=== PATIENT | male | born 1960 | race Caucasian/White ===

== ENCOUNTER 2017-05-04 20:14 | Emergency (ER) | payer OTHER ==
[~2017-05-04] VITALS: Ht 177.8 cm; Wt 77.1 kg
[2017-05-04 20:32] VITALS: BP 123/91
--- NOTE | 2017-05-04 20:32 | NUR ---
SENT TO [facility], AMBULATORY, WITH STABLE CONDITION.
[2017-05-04 20:39] VITALS: BP 123/91
--- NOTE | 2017-05-04 20:40 | NUR ---
SENT TO [facility] WITH THE [facility].
--- NOTE | 2017-05-04 22:17 | NUR ---
Patient ambulated to bed 6. RN evaluating patient at bedside.
--- NOTE | 2017-05-04 22:20 | NUR ---
56/M CAME IN WITH C/O 02/22 RT ANKLE PAIN. DENIES TRAUMA/INJURY. REDNESS AND NONPITTING EDEMA TO RT ANKLE NOTED, +TENDERNESS, SKIN INTACT. NO HISTORY OF SIMILAR SYMPTOMS REPORTED. DENIES FEVER/CHILL. DENIES OTHER PMH/RX/OTC
--- NOTE | 2017-05-04 22:35 | NUR ---
Patient discharged with v/s stable. Written and verbal after care instructions given and explained. Patient alert, oriented and verbalized understanding of instructions. Ambulatory with to car. All questions addressed prior to discharge. ID band removed. Patient advised to follow up with PMD. Rx of IBUPROFEN AND BACTRIM DS given. Patient educated on indication of medication including possible reaction and side effects. Opportunity to ask questions provided and answered.
== END 2017-05-04 22:35 | disposition home or self-care (01) ==
LOC: MED 20:14
DX: L03.115 Cellulitis of right lower limb (principal)
CPT/HCPCS: 73610; 99284

== ENCOUNTER 2019-05-10 13:44 | Emergency (ER) | payer OTHER ==
[~2019-05-10] VITALS: Ht 177.8 cm; Wt 79.4 kg
[2019-05-10 13:49] VITALS: BP 124/83
--- NOTE | 2019-05-10 13:59 | NUR ---
PT AMBULATED TO ER BED 08
--- NOTE | 2019-05-10 13:59 | NUR ---
PT TAKEN TO RADIOLOGY AT THIS TIME
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
[2019-05-10] MEDS ORDERED: NACL 0.9% 500 ML IV SCH (15:34)
[2019-05-10] MEDS ORDERED: ONDANSETRON 4 MG/2 ML VIAL IVP ONE (15:35)
[2019-05-10] MEDS ORDERED: VANCOMYCIN 1,000 MG in DEXTROSE 5% 250 ML IV ONE (15:35)
[2019-05-10] MEDS ORDERED: PIPERACILLIN/TAZOBACTAM 3.375 GM in DEXT 5% MINI-BAG PLUS 50 ML IV ONE (15:35)
[2019-05-10] MEDS ORDERED: MORPHINE SULFATE 4 MG/ML SYR IVP ONE (15:35)
--- NOTE | 2019-05-10 15:35 | NUR ---
PT HAS A WHITE MARISSA TRUCK IN THE PARKING LOT
--- NOTE | 2019-05-10 15:45 | NUR ---
XRAY AT BEDSIDE
--- NOTE | 2019-05-10 15:47 | NUR ---
PT PROVIDING URINE SAMPLE AT BEDSIDE. DRAMA DIRECTOR WAITING OUTSIDE.
[2019-05-10] MEDS ORDERED: NACL 0.9% 2,000 ML IV SCH (15:48)
[2019-05-10] MEDS ORDERED: PIPERACILLIN/TAZOBACTAM 3.375 GM VIAL IV ONE (16:05)
[2019-05-10 16:33] LABS: BASOPHILS % (AUTO) 0.1 % (0.0-2.0); EOSINOPHILS % (AUTO) 0.1 % (0.0-4.0); HEMATOCRIT 47.1 % (36-52); HEMOGLOBIN 15.8 g/dL (12.0-18.0); LYMPHOCYTES # (AUTO) 0.8 K/uL (2.0-11.5); LYMPHOCYTES % (AUTO) 6.9 % (20.5-51.1); MEAN CORPUSCULAR HEMOGLOBIN 30 pg (27-31); MEAN CORPUSCULAR HGB CONC 34 g/dL (33-37); MEAN CORPUSCULAR VOLUME 89.3 fL (80-94); MONOCYTES # (AUTO) 0.5 K/uL (0.8-1.0); MONOCYTES % (AUTO) 4.5 % (1.7-9.3); NEUTROPHILS # (AUTO) 10.4 K/uL (1.8-7.7); NEUTROPHILS % (AUTO) 88.4 % (42.2-75.2); PLATELET COUNT (AUTO) 247 K/uL (140-450); RED BLOOD CELL COUNT(AUTO) 5.27 MIL/uL (4.20-6.10); RED CELL DISTRIBUTION WIDTH 14.2 % (11.6-13.7); WHITE BLOOD COUNT (AUTO) 11.8 K/uL (4.8-10.8)
[2019-05-10 16:49] LABS: ALBUMIN 3.5 g/dL (3.4-5.0); ANION GAP 13.4 (8-16); CARBON DIOXIDE 26.6 mmol/L (21-32); CREATININE 0.8 mg/dL (0.7-1.3); TOTAL BILIRUBIN 0.6 mg/dL (0.0-1.0)
[2019-05-10 16:52] LABS: APPEARANCE,URINE CLEAR (CLEAR); BILIRUBIN,URINE NEGATIVE (NEGATIVE); BLOOD, URINE NEGATIVE (NEGATIVE); COLOR,URINE YELLOW (YELLOW); LEUKOCYTE ESTERASE ,URINE NEGATIVE (NEGATIVE); NITRITE, URINE NEGATIVE (NEGATIVE); PH,URINE 7.5 (5.0-9.0); UGLUCOSE NEGATIVE (NEGATIVE)
[2019-05-10] MEDS ORDERED: VANCOMYCIN 1,000 MG VIAL ONE (16:57)
--- NOTE | 2019-05-10 17:10 | NUR ---
[facility] at bedside for transfer to [facility] ER.
--- NOTE | 2019-05-10 17:17 | NUR ---
NOTIFIED DR. AMAYA THAT [facility] STARTED A FEW MIN AGO BUT [facility] TRANSPORT IS HERE. PER , OKAY TO STOP INFUSING [facility] AND TRANSFER PT NOW.
--- NOTE | 2019-05-10 17:18 | NUR ---
report to Rah ([facility]) at bedside
--- NOTE | 2019-05-10 17:22 | NUR ---
Patient to be transferred to [facility]. Receiving facility has accepting physician and available space. ER physician has signed transfer form. Patient or responsible alliance party has agreed to transfer and signed form. Patient belongings inventoried and will be sent with patient. Copy of nursing notes, lab reports, EKG, Physicians Orders and X-rays to be sent with patient. Report called to SOCORRO BRYANT at receiving facility. Addendum: 05/10/19 at 1800 by SHANEKA Is being transferred due to ABSCESS AND CELLULITIS FOR RIGHT HAND.
--- NOTE | 2019-05-10 17:22 | NUR ---
REPORT TO SOCORRO BRYANT AT [facility].
[2019-05-10 17:45] VITALS: BP 115/76
== END 2019-05-10 17:22 | disposition short-term general hospital (02) ==
LOC: MED 13:44
DX: S69.91XA Unspecified injury of right wrist, hand and finger(s), initial encounter (principal); L02.511 Cutaneous abscess of right hand; L03.113 Cellulitis of right upper limb; W22.8XXA Striking against or struck by other objects, initial encounter; Y93.B9 Activity, other involving muscle strengthening exercises; Y99.8 Other external cause status
CPT/HCPCS: 36415; 73090; 73120; 80053; 81003; 83605; 85025; 87040; 87086; 96365; 96375; 99285; J2270; J2405; J2543; J3370; J7060; Q0092; 96374

== ENCOUNTER 2019-05-18 16:00 | Emergency (ER) | payer OTHER ==
[~2019-05-18] VITALS: Ht 175.3 cm; Wt 79.8 kg
[2019-05-18 16:08] VITALS: BP 133/84
--- NOTE | 2019-05-18 16:14 | NUR ---
Triage completed, ambulated out to ER waiting room.
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
--- NOTE | 2019-05-18 16:20 | NUR ---
Pt placed in chair B.
[2019-05-18] MEDS ORDERED: BACITRACIN OINT 500 UNITS/GM PKT TP ONE (16:30)
--- NOTE | 2019-05-18 16:39 | NUR ---
L HAND CLEANSED, BACITRACIN APPLIED, AND COVERED WITH NONADHERENT AND KERLIX, +CMS DISTALLY.
[2019-05-18 16:40] VITALS: BP 133/84
== END 2019-05-18 16:40 | disposition home or self-care (01) ==
LOC: MED 16:00
DX: S69.91XD Unspecified injury of right wrist, hand and finger(s), subsequent encounter (principal); F17.210 Nicotine dependence, cigarettes, uncomplicated; X58.XXXD Exposure to other specified factors, subsequent encounter
CPT/HCPCS: 99283

== ENCOUNTER 2019-07-19 10:10 | Emergency (ER) | payer OTHER ==
[~2019-07-19] VITALS: Ht 177.8 cm; Wt 82.3 kg
[2019-07-19 10:12] VITALS: BP 124/69
--- NOTE | 2019-07-19 10:30 | NUR ---
PT AMBULATED TO BED 9, STEADY GAIT.
--- NOTE | 2019-07-19 10:37 | NUR ---
58 Y/M PRESENTS TO ED FOR CELLULITIS OF RLQ OF ABDOMEN X 3 DAY. PT REPORTS 8/10 SHARP PAIN. EDEMA AND ERYTHEMA NOTED TO ABDOMEN. PT REPORTS DRAINAGE AFTER APPLYING NEOSPORIN. PT UNABLE TO RECALL COLOR OF DRAINIAGE. VIRGIE DENIES PM Addendum: 07/19/19 at 1038 by [facility] DENIES N/V/D, CHILLS OR FEVERS.
[2019-07-19] MEDS ORDERED: KETOROLAC 60 MG/2 ML VIAL IM ONE (11:35)
--- NOTE | 2019-07-19 12:20 | NUR ---
ZAHIDA BRAXTON EVALUATING PT AT BEDSIDE.
[2019-07-19 12:24] VITALS: BP 169/82
--- NOTE | 2019-07-19 12:24 | NUR ---
Patient discharged with v/s stable. Written and verbal after care instructions given and explained. Patient alert, oriented and verbalized understanding of instructions. Ambulatory with steady gait. All questions addressed prior to discharge. ID band removed. Patient advised to follow up with PMD. Rx of NAPROXEN, KEFLEX AND BACTIM given. Patient educated on indication of medication including possible reaction and side effects. Opportunity to ask questions provided and answered.
--- NOTE | 2019-07-19 12:25 | NUR ---
NADR, PAIN 09/22
== END 2019-07-19 12:24 | disposition home or self-care (01) ==
LOC: MED 10:10
DX: L03.311 Cellulitis of abdominal wall (principal); F17.210 Nicotine dependence, cigarettes, uncomplicated
CPT/HCPCS: 96372; 99283; J1885

== ENCOUNTER 2020-02-19 00:15 | Emergency (ER) | payer OTHER ==
[~2020-02-19] VITALS: Ht 177.8 cm; Wt 86.2 kg
[2020-02-19 00:26] VITALS: BP 150/91
--- NOTE | 2020-02-19 00:36 | NUR ---
AMBULATED TO ER BED 7
[2020-02-19] MEDS: KETOROLAC 30 MG/ML VIAL IM ONE (01:54)
--- NOTE | 2020-02-19 02:01 | NUR ---
PT TAKEN TO CT VIA W/C Addendum: 02/19/20 at 0215 by JOANNE pt taken to ct via rishi
--- NOTE | 2020-02-19 02:15 | NUR ---
pt returned from ct via [facility]
--- NOTE | 2020-02-19 02:44 | NUR ---
XRAY AT BEDSIDE.
--- NOTE | 2020-02-19 03:17 | NUR ---
pts right wrist was placed on a volar splint. pts [facility] wnl.
[2020-02-19 03:30] VITALS: BP 150/91
== END 2020-02-19 03:30 | disposition home or self-care (01) ==
LOC: MED 00:15
DX: S52.611A Displaced fracture of right ulna styloid process, initial encounter for closed fracture (principal); S16.1XXA Strain of muscle, fascia and tendon at neck level, initial encounter; S00.33XA Contusion of nose, initial encounter; M25.511 Pain in right shoulder; X58.XXXA Exposure to other specified factors, initial encounter; Y93.89 Activity, other specified; Y92.89 Other specified places as the place of occurrence of the external cause; Y99.8 Other external cause status
CPT/HCPCS: 29125; 70160; 70450; 72125; 73030; 73110; 96372; 99285; J1885; Q0092

== ENCOUNTER 2020-03-20 14:24 | Emergency (ER) | payer OTHER ==
[~2020-03-20] VITALS: Ht 177.8 cm; Wt 86.2 kg
[2020-03-20 14:34] VITALS: BP 134/84
--- NOTE | 2020-03-20 14:42 | NUR ---
WAIT AT LOBBY. HANDED ON URINE CUP.
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
--- NOTE | 2020-03-20 16:08 | NUR ---
DR. HUANG IS EVALUATING PT AT BEDSIDE.
[2020-03-20] MEDS ORDERED: KETOROLAC 30 MG/ML VIAL IM ONE (16:10)
--- NOTE | 2020-03-20 17:19 | NUR ---
PT REFUSED TO BE DISCHARGED WITH TYLENOL AND WANTED TO TALK TO DR. HUANG. DR. HUANG MADE AWARE.
[2020-03-20 17:49] VITALS: BP 118/81
== END 2020-03-20 17:49 | disposition home or self-care (01) ==
LOC: MED 14:24
DX: S52.614A Nondisplaced fracture of right ulna styloid process, initial encounter for closed fracture (principal); M25.511 Pain in right shoulder; M25.521 Pain in right elbow; X58.XXXA Exposure to other specified factors, initial encounter; Y93.89 Activity, other specified; Y92.89 Other specified places as the place of occurrence of the external cause; Y99.8 Other external cause status
CPT/HCPCS: 73030; 73080; 73110; 96372; 99284; J1885; Q0092

== ENCOUNTER 2021-01-01 10:05 | Emergency (ER) | payer OTHER ==
[~2021-01-01] VITALS: Ht 170.2 cm; Wt 79.4 kg
--- NOTE | 2021-01-01 10:05 | NUR ---
PT BIBA AND PLACED IN BED 9.
[2021-01-01 10:11] VITALS: BP 174/81
--- NOTE | 2021-01-01 10:22 | NUR ---
YOLANDA FROM [facility]. PATIENT PRESENTS TO ED WITH LUQ THAT BEGAN AT 3 AM TODAY . PT DENIES ANY ALCOHOL OR DRUG ABUSE. . DENIES N/V/D; SKIN IS PINK/WARM/DRY; AAOX4 WITH EVEN AND STEADY GAIT; LUNGS CLEAR BL; HR EVEN AND REGULAR; PT DENIES ANY FEVER, CP, SOB, OR COUGH AT THIS TIME; PATIENT STATES PAIN OF 10/10 AT THIS TIME; VSS; PATIENT POSITIONED FOR COMFORT; HOB ELEVATED; BEDRAILS UP X2; BED DOWN. ER MD MADE AWARE OF PT STATUS.
[2021-01-01] MEDS ORDERED: KETOROLAC 60 MG/2 ML VIAL IM ONE (12:35)
--- NOTE | 2021-01-01 12:54 | NUR ---
Taken to Xray via wheelchair
--- NOTE | 2021-01-01 13:05 | NUR ---
PT BROUGHT BACK FROM XRAY
[2021-01-01] MEDS ORDERED: NACL 0.9% 1,000 ML IV SCH (13:15)
[2021-01-01 14:03] LABS: BASOPHILS % (AUTO) 0.5 % (0.0-2.0); EOSINOPHILS % (AUTO) 0.3 % (0.0-4.0); HEMATOCRIT 46.6 % (36-52); HEMOGLOBIN 15.6 g/dL (12.0-18.0); LYMPHOCYTES % (AUTO) 11.3 % (20.5-51.1); MEAN CORPUSCULAR HEMOGLOBIN 30 pg (27-31); MEAN CORPUSCULAR HGB CONC 34 g/dL (33-37); MEAN CORPUSCULAR VOLUME 88.9 fL (80-94); MONOCYTES # (AUTO) 0.5 K/uL (0.8-1.0); MONOCYTES % (AUTO) 5.8 % (1.7-9.3); NEUTROPHILS # (AUTO) 7.4 K/uL (1.8-7.7); NEUTROPHILS % (AUTO) 82.1 % (42.2-75.2); PLATELET COUNT (AUTO) 249 K/uL (140-450); RED BLOOD CELL COUNT(AUTO) 5.24 MIL/uL (4.20-6.10); RED CELL DISTRIBUTION WIDTH 14.1 % (11.6-13.7)
[2021-01-01 14:08] LABS: APPEARANCE,URINE HAZY (CLEAR); BILIRUBIN,URINE NEGATIVE (NEGATIVE); BLOOD, URINE 3+ (NEGATIVE); COLOR,URINE YELLOW (YELLOW); LEUKOCYTE ESTERASE ,URINE NEGATIVE (NEGATIVE); NITRITE, URINE NEGATIVE (NEGATIVE); UGLUCOSE NEGATIVE (NEGATIVE)
[2021-01-01 14:16] LABS: RBC,URINE 20-50 /HPF (0-5); URIC ACID CRYSTALS,URINE 0-10 /HPF (None Seen); WBC,URINE 0-5 /HPF (0-5)
[2021-01-01] MEDS ORDERED: ACET-8386 PO (14:18)
[2021-01-01] MEDS ORDERED: TAMS0.4C96 PO (14:18)
[2021-01-01 14:22] LABS: ALBUMIN 3.5 g/dL (3.4-5.0); ANION GAP 7.8 (8-16); CARBON DIOXIDE 30.2 mmol/L (21-32); TOTAL BILIRUBIN 0.5 mg/dL (0.0-1.0)
[2021-01-01 14:45] VITALS: BP 174/81
--- NOTE | 2021-01-01 15:14 | NUR ---
Patient discharged with v/s stable. Written and verbal after care instructions given and explained. Patient alert, oriented and verbalized understanding of instructions. Ambulatory with steady gait. All questions addressed prior to discharge. ID band removed. Patient advised to follow up with PMD. Rx of NORCO, FLOMAX given. Patient educated on indication of medication including possible reaction and side effects. Opportunity to ask questions provided and answered.
== END 2021-01-01 15:14 | disposition home or self-care (01) ==
LOC: MED 10:05
DX: N20.0 Calculus of kidney (principal); R10.12 Left upper quadrant pain; Z79.899 Other long term (current) drug therapy
CPT/HCPCS: 36415; 71101; 74176; 80053; 81001; 83690; 85025; 87086; 93005; 96372; 99285; J1885

== ENCOUNTER 2021-01-02 22:43 | Emergency (ER) | payer OTHER ==
[~2021-01-02] VITALS: Ht 177.8 cm; Wt 93.6 kg
[~2021-01-02 22:43] MED LIST: ACET-8386 PO; TAMS0.4C96 PO
[2021-01-02 23:30] VITALS: BP 151/82
--- NOTE | 2021-01-02 23:33 | NUR ---
[facility] A/W BED AMBULATORY
--- NOTE | 2021-01-02 23:44 | NUR ---
PT AMBULATED TO ER CHAIR B
[2021-01-03] MEDS ORDERED: HYDROcodone/APAP 10/325 MG 1 TAB TAB PO STA (01:00)
[2021-01-03 01:56] LABS: APPEARANCE,URINE CLEAR (CLEAR); BILIRUBIN,URINE NEGATIVE (NEGATIVE); BLOOD, URINE 2+ (NEGATIVE); COLOR,URINE YELLOW (YELLOW); LEUKOCYTE ESTERASE ,URINE NEGATIVE (NEGATIVE); NITRITE, URINE NEGATIVE (NEGATIVE); UGLUCOSE NEGATIVE (NEGATIVE)
[2021-01-03] MEDS ORDERED: HYDR-5191 PO (02:15)
[2021-01-03] MEDS ORDERED: TAMS0.4C96 PO (02:15)
[2021-01-03 02:20] VITALS: BP 142/78
--- NOTE | 2021-01-03 02:20 | NUR ---
Patient discharged with v/s stable. Written and verbal after care instructions given and explained. Patient alert, oriented and verbalized understanding of instructions. Ambulatory with steady gait. All questions addressed prior to discharge. ID band removed. Patient advised to follow up with PMD. Rx of NORCO 10-325, TAMSULOSIN given. Patient educated on indication of medication including possible reaction and side effects. Opportunity to ask questions provided and answered.
== END 2021-01-03 02:20 | disposition home or self-care (01) ==
LOC: MED 22:43
DX: N20.0 Calculus of kidney (principal); Z79.899 Other long term (current) drug therapy
CPT/HCPCS: 81001; 87086; 99283

== ENCOUNTER 2021-04-11 01:43 | Emergency (ER) | payer OTHER ==
[~2021-04-11] VITALS: Ht 177.8 cm; Wt 90.0 kg
[~2021-04-11 01:43] MED LIST changes: -ACET-8386 PO; +HYDR-5191 PO
[2021-04-11 01:56] VITALS: BP 142/82
--- NOTE | 2021-04-11 01:56 | NUR ---
TO BED AMBULATORY
--- NOTE | 2021-04-11 02:42 | NUR ---
Note arturo in EDM - 04/11/21 at 0247 by KARY 60 YO MALE BIB SELF FOR RIGHT WRIST PAIN FOR 2 WEEKS. PT STATES HE BROKE HIS WRIST IN 2019 AND MAY HAVE BROKEN AGAIN.
--- NOTE | 2021-04-11 02:47 | NUR ---
60 YO MALE BIB SELF FOR RIGHT WRIST PAIN FOR 2 WEEKS. PT STATES HE BROKE HIS WRIST IN 2019 AND MAY HAVE BROKEN AGAIN. PT ALSO COMPLAINS OF ABCESS ON FINGER AND NOSE. HE THINKS HE MAY BE DIABETIC. PT HAS NOT TAKEN ANYTHING FOR THE PAIN. PATIENT HAS NKA.
[2021-04-11] MEDS ORDERED: KETOROLAC 30 MG/ML VIAL IM ONE (02:50)
[2021-04-11] MEDS ORDERED: NAPR-54 PO (02:52)
[2021-04-11] MEDS ORDERED: SULF-59 PO (02:52)
[2021-04-11] MEDS ORDERED: HYDROcodone/APAP 5/325 MG 1 TAB TAB PO ONE (02:55)
--- NOTE | 2021-04-11 03:14 | NUR ---
Dr. Cherry examining patient.
[2021-04-11] MEDS ORDERED: ACET-8386 PO (03:18)
[2021-04-11 04:17] VITALS: BP 140/80
--- NOTE | 2021-04-11 05:20 | NUR ---
Patient discharged with v/s stable. Written and verbal after care instructions given and explained. Patient alert, oriented and verbalized understanding of instructions. Ambulatory with steady gait. All questions addressed prior to discharge. ID band removed. Patient advised to follow up with PMD. Rx of NAPROXEN, BACTRIM, AND NORCO given.Opportunity to ask questions provided and answered.
--- NOTE | 2021-04-11 05:23 | NUR ---
The patient's care was reviewed and supervised by MARIAM DUNCAN RN.
== END 2021-04-11 04:17 | disposition home or self-care (01) ==
LOC: MED 01:43
DX: S63.501A Unspecified sprain of right wrist, initial encounter (principal); R21 Rash and other nonspecific skin eruption; Z79.899 Other long term (current) drug therapy; X58.XXXA Exposure to other specified factors, initial encounter; Y93.89 Activity, other specified; Y92.89 Other specified places as the place of occurrence of the external cause; Y99.8 Other external cause status
CPT/HCPCS: 73110; 99283

== ENCOUNTER 2021-05-27 11:29 | Emergency (ER) | payer OTHER ==
[~2021-05-27] VITALS: Ht 177.8 cm; Wt 91.3 kg
[~2021-05-27 11:29] MED LIST changes: +ACET-8386 PO; +NAPR-54 PO; +SULF-59 PO
[2021-05-27 11:44] VITALS: BP 152/98
[2021-05-27] MEDS ORDERED: methylPREDNISolone SS 125 MG in WATER STERILE 2 ML IM ONE (12:15)
[2021-05-27] MEDS ORDERED: DIPH25TA53 PO (12:16)
[2021-05-27] MEDS ORDERED: PRED20TA5 PO (12:16)
[2021-05-27] MEDS ORDERED: NAPR-54 PO (12:16)
[2021-05-27] MEDS ORDERED: methylPREDNISolone SS 125 MG/2 ML VIAL ONE (12:55)
[2021-05-27] MEDS ORDERED: WATER STERILE 10 ML MC ONE (12:55)
--- NOTE | 2021-05-27 12:58 | NUR ---
Patient discharged with v/s stable. Written and verbal after care instructions given and explained. Patient alert, oriented and verbalized understanding of instructions. Ambulatory with steady gait. All questions addressed prior to discharge. ID band removed. Patient advised to follow up with PMD. Rx of BENADRYL, NAPROSYN, PREDNISONE, given. Patient educated on indication of medication including possible reaction and side effects. Opportunity to ask questions provided and answered.
[2021-05-27 13:00] VITALS: BP 150/88
== END 2021-05-27 12:58 | disposition home or self-care (01) ==
LOC: MED 11:29
DX: T78.40XA Allergy, unspecified, initial encounter (principal); R21 Rash and other nonspecific skin eruption; Z79.899 Other long term (current) drug therapy; X58.XXXA Exposure to other specified factors, initial encounter; Y93.89 Activity, other specified; Y92.89 Other specified places as the place of occurrence of the external cause; Y99.8 Other external cause status
CPT/HCPCS: 96372; 99283; J2930

== ENCOUNTER 2021-06-26 00:43 | Emergency (ER) | payer OTHER ==
[~2021-06-26] VITALS: Ht 177.8 cm; Wt 89.8 kg
[~2021-06-26 00:43] MED LIST changes: +DIPH25TA53 PO; +PRED20TA5 PO
[2021-06-26 00:46] VITALS: BP 139/90
--- NOTE | 2021-06-26 00:52 | NUR ---
PT TO LOBBY TO A/W EVALUATION
--- NOTE | 2021-06-26 01:05 | NUR ---
60 Y/O MALE BIB SELF, C/O RASH AND PAIN TO [facility]. PATIENT PRESENTS TO ED WITH PAIN, RASH, PRESSURE. PT STATES HE HAS HAD PAIN AND PRESSURE THE PAST FEW DAYS AND HAS BEEN TOO WORRIED TO LOOK AT IT. DENIES N/V/D; SKIN IS PINK/WARM/DRY; AAOX4 WITH EVEN AND STEADY GAIT; LUNGS CLEAR BL; HR EVEN AND REGULAR; PT DENIES ANY FEVER, CP, SOB, OR COUGH AT THIS TIME; PATIENT STATES PAIN OF 10/10 AT THIS TIME; NO DYSURIA; VSS; PATIENT POSITIONED FOR COMFORT; HOB ELEVATED; BEDRAILS UP X2; BED DOWN. ER MD MADE AWARE OF PT STATUS. HX: HEP-C, TB, TONSILECTOMY, HERNIA REPAIR NKDA DENIES MEDS
[2021-06-26] MEDS ORDERED: cefTRIAXone 500 MG in LIDOCAINE MPF 1% 1 ML IM ONE (02:10)
[2021-06-26] MEDS ORDERED: AZITHROMYCIN 250 MG TAB PO ONE (02:10)
--- NOTE | 2021-06-26 02:12 | NUR ---
PT AMBULATED TO BED #9
[2021-06-26] MEDS ORDERED: DOXY-487 PO (02:17)
[2021-06-26 02:21] LABS: APPEARANCE,URINE CLOUDY (CLEAR); BILIRUBIN,URINE NEGATIVE (NEGATIVE); BLOOD, URINE 3+ (NEGATIVE); COLOR,URINE ORANGE (YELLOW); LEUKOCYTE ESTERASE ,URINE 2+ (NEGATIVE); NITRITE, URINE NEGATIVE (NEGATIVE); UGLUCOSE NEGATIVE (NEGATIVE)
[2021-06-26] MEDS ORDERED: cefTRIAXone 500 MG VIAL ONE (02:25)
[2021-06-26] MEDS ORDERED: LIDOCAINE MPF 1% 5 ML ONE (02:26)
[2021-06-26 02:42] LABS: RBC,URINE 0-5 /HPF (0-5)
[2021-06-26 02:43] LABS: WBC,URINE TOO MANY TO COUNT /HPF (0-5)
[2021-06-26 02:47] VITALS: BP 139/90
--- NOTE | 2021-06-26 02:47 | NUR ---
Patient discharged with v/s stable. Written and verbal after care instructions given and explained. Patient alert, oriented and verbalized understanding of instructions. Ambulatory with steady gait. All questions addressed prior to discharge. ID band removed. Patient advised to follow up with PMD. Rx of Doxycycline given. Patient educated on indication of medication including possible reaction and side effects. Opportunity to ask questions provided and answered. vss, a/ox4, ambulatory, unlabored breathing, and calm demeanor.
== END 2021-06-26 02:47 | disposition home or self-care (01) ==
LOC: MED 00:43
DX: N34.2 Other urethritis (principal); A64 Unspecified sexually transmitted disease; L30.4 Erythema intertrigo; F17.200 Nicotine dependence, unspecified, uncomplicated; Z86.19 Personal history of other infectious and parasitic diseases; Z79.899 Other long term (current) drug therapy
CPT/HCPCS: 36415; 81001; 87086; 96372; 99283; J0696; J2001; 87491

== ENCOUNTER 2022-03-16 18:03 | Emergency (ER) | payer MEDICAID, OTHER ==
[~2022-03-16] VITALS: Ht 177.8 cm; Wt 90.7 kg
[~2022-03-16 18:03] MED LIST changes: +DOXY-487 PO
[2022-03-16 18:09] VITALS: BP 119/81
--- NOTE | 2022-03-16 18:12 | NUR ---
PT WC ASSISTED TO LOBBY
--- NOTE | 2022-03-16 18:13 | NUR ---
61 Y/O MALE BIBA FROM [facility] C/O RIGHT LEG [id number], DENIES ANY TRAUMA/INJURY, NOTED REDNESS AND SWELLING ON FOOT AND BELOW THE KNEE. 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 DENIES ANY NUMBNESS OR TINGLING, PT ABLE TO AMBULATE WITH PAIN NKA PMH: DENIES
[2022-03-16] MEDS ORDERED: KETOROLAC 30 MG/ML VIAL IM ONE (22:15)
[2022-03-16] MEDS ORDERED: IBUP-2213 PO (23:06)
[2022-03-16] MEDS ORDERED: SULF-59 PO (23:06)
[2022-03-16] MEDS ORDERED: CEPH-588 PO (23:06)
[2022-03-16] MEDS ORDERED: HYDR-5191 PO (23:27)
--- NOTE | 2022-03-16 23:33 | NUR ---
Patient discharged with v/s stable. Written and verbal after care instructions given and explained. Patient alert, oriented and verbalized understanding of instructions. Ambulatory with steady gait. All questions addressed prior to discharge. ID band removed. Patient advised to follow up with PMD. Rx of KEFLEX, HYDROCODONE/ACETAMINOPHEN, AND BACTRIM given. Patient educated on indication of medication including possible reaction and side effects. Opportunity to ask questions provided and answered.
== END 2022-03-16 23:33 | disposition home or self-care (01) ==
LOC: MED 18:03
DX: L03.115 Cellulitis of right lower limb (principal)
CPT/HCPCS: 96372; 99283; J1885

== ENCOUNTER 2022-03-18 21:03 | Inpatient (IN) | payer MEDICAID ==
[~2022-03-18] VITALS: Ht 177.8 cm; Wt 89.8 kg
[~2022-03-18 21:03] MED LIST changes: +CEPH-588 PO
[2022-03-18 22:12] VITALS: BP 135/86
--- NOTE | 2022-03-18 22:18 | NUR ---
PT TAKEN TO BED 5
--- NOTE | 2022-03-18 22:23 | NUR ---
REPORT GIVEN TO GABRIELLA BRYANT
--- NOTE | 2022-03-18 22:43 | NUR ---
Dr. Campa examining patient.
[2022-03-18] MEDS ORDERED: IBUPROFEN 600 MG TAB PO ONE (23:00)
[2022-03-18] MEDS ORDERED: HYDROcodone/APAP 5/325 MG 1 TAB TAB PO ONE (23:00)
--- NOTE | 2022-03-18 23:16 | NUR ---
PT TAKEN TO CT
[2022-03-18 23:19] LABS: BASOPHILS % (AUTO) 0.6 % (0.0-2.0); EOSINOPHILS # (AUTO) 0.1 K/uL (0-0.4); EOSINOPHILS % (AUTO) 1.8 % (0.0-4.0); HEMATOCRIT 44.1 % (36-52); HEMOGLOBIN 14.8 g/dL (12.0-18.0); LYMPHOCYTES % (AUTO) 29.7 % (20.5-51.1); MEAN CORPUSCULAR HEMOGLOBIN 30 pg (27-31); MEAN CORPUSCULAR HGB CONC 34 g/dL (33-37); MEAN CORPUSCULAR VOLUME 89.2 fL (80-94); MONOCYTES # (AUTO) 0.6 K/uL (0.8-1.0); MONOCYTES % (AUTO) 9.3 % (1.7-9.3); NEUTROPHILS % (AUTO) 58.6 % (42.2-75.2); PLATELET COUNT (AUTO) 222 K/uL (140-450); RED BLOOD CELL COUNT(AUTO) 4.95 MIL/uL (4.20-6.10); RED CELL DISTRIBUTION WIDTH 14.1 % (11.6-13.7); WHITE BLOOD COUNT (AUTO) 6.8 K/uL (4.8-10.8)
--- NOTE | 2022-03-18 23:29 | NUR ---
PT RETURN FROM CT
[2022-03-18 23:52] LABS: ANION GAP 11.7 (8-16); CARBON DIOXIDE 28.3 mmol/L (21-32); CREATININE 0.8 mg/dL (0.6-1.3); TOTAL BILIRUBIN 0.3 mg/dL (0.0-1.0)
[2022-03-19] MEDS ORDERED: VANCOMYCIN 1,000 MG in DEXTROSE 5% 250 ML IV ONE (02:30)
[2022-03-19] MEDS ORDERED: MORPHINE SULFATE 2 MG/ML SYR IVP PRN (02:45)
[2022-03-19] MEDS ORDERED: VANCOMYCIN 1,000 MG VIAL ONE (02:59)
--- NOTE | 2022-03-19 03:16 | NUR ---
pt. placed on engine monitor at bedside. NSR
--- NOTE | 2022-03-19 04:04 | NUR ---
Patient will be admitted to care of Dr. Fall. Admited to med surg. Will go to room. Belongings list completed. Report to . pt stable to be taken. no further questions or concerns. understands need for admission
[2022-03-19 04:10] VITALS: BP 126/78
--- NOTE | 2022-03-19 04:10 | NUR ---
RECEIVED PATIENT FROM ED, CAME VIA GURNEY. PATIENT IS ALERT AND ORIENTED, BREATHING EVEN AND NON LABORED ON ROOM AIR. PATIENT HAS IV ACCESS ON LEFT AC GAUGE 20. RIGHT LOWER EXTREMITY REDNESS AND SWELLING NOTED, PICTURE TAKEN, AREA IS WARM TO TOUCH. PATIENT ORIENTED TO MST SETTING. UPDATED WHITE BOARD. SAFETY PRECAUTIONS IN PLACE, CALL LIGHT WITHIN REACH, INSTRUCTED TO USE CALL LIGHT WHEN IN NEED OF ASSISTANCE. VERBALIZED UNDERSTANDING.
--- NOTE | 2022-03-19 06:15 | NUR ---
PATIENT IS ASLEEP. NO S/SX OF PAIN NOR DISCOMFORT. ALL NEEDS ATTENDED TO. SAFETY PRECAUTIONS MAINTAINED DURING THE SHIFT, CALL LIGHT REMAINED WITHIN REACH.
[2022-03-19] MEDS ORDERED: MAG SULF 2000 MG/WATER PREMIX 50 ML IV PRN (07:20)
[2022-03-19] MEDS ORDERED: ONDANSETRON 4 MG/2 ML VIAL IVP PRN (07:20)
[2022-03-19] MEDS ORDERED: ACETAMINOPHEN 325 MG TAB PO PRN (07:20)
[2022-03-19] MEDS ORDERED: LORazepam 2 MG/ML VIAL IVP PRN (07:20)
[2022-03-19] MEDS ORDERED: ZOLPIDEM 10 MG TAB PO PRN (07:20)
[2022-03-19] MEDS ORDERED: POTASSIUM CHLORIDE 10 MEQ TABER PO PRN (07:20)
[2022-03-19] MEDS ORDERED: DOCUSATE SODIUM 100 MG GELCAP PO PRN (07:20)
[2022-03-19 08:00] VITALS: BP 113/73
--- NOTE | 2022-03-19 08:00 | NUR ---
RECEIVED IN BED AWAKE A/OX4 ASSESSMENT COMPLETED PLAN OF CARE REVIEWED NO ACUTE DISTRESS RIGHT LOWER LEG NOTED TO BE REDDENED NO OPEN AREAS BREATHING EVEN NON LABORED CALL LIGHT IN REACH WILL CONTINUE TO MOITOR AND ASSESS
[2022-03-19] MEDS ORDERED: VANCOMYCIN PER PHARMACY MC PRN (08:50)
[2022-03-19 08:59] LABS: BASOPHILS % (AUTO) 0.7 % (0.0-2.0); EOSINOPHILS # (AUTO) 0.1 K/uL (0-0.4); LYMPHOCYTES # (AUTO) 1.7 K/uL (2.0-11.5); LYMPHOCYTES % (AUTO) 33.8 % (20.5-51.1); MEAN CORPUSCULAR HEMOGLOBIN 30 pg (27-31); MEAN CORPUSCULAR HGB CONC 33 g/dL (33-37); MEAN CORPUSCULAR VOLUME 89.3 fL (80-94); MONOCYTES # (AUTO) 0.3 K/uL (0.8-1.0); NEUTROPHILS # (AUTO) 2.8 K/uL (1.8-7.7); NEUTROPHILS % (AUTO) 56.5 % (42.2-75.2); PLATELET COUNT (AUTO) 226 K/uL (140-450); RED BLOOD CELL COUNT(AUTO) 5.03 MIL/uL (4.20-6.10); RED CELL DISTRIBUTION WIDTH 13.9 % (11.6-13.7); WHITE BLOOD COUNT (AUTO) 4.9 K/uL (4.8-10.8)
[2022-03-19 09:14] LABS: ANION GAP 11.3 (8-16); CREATININE 0.8 mg/dL (0.6-1.3); POTASSIUM 4.3 mmol/L (3.5-5.1)
--- NOTE | 2022-03-19 10:44 | NUR ---
PATIENT HAS BEEN SCREENED AND CATEGORIZED LOW NUTRITION RISK. PATIENT WILL BE SEEN WITHIN 7 DAYS OF ADMISSION. 03/26/22 REVIEWED BY ELEUTERIO WILCOX RD
[2022-03-19] MEDS: VANCOMYCIN 1,000 MG in DEXTROSE 5% 250 ML IV SCH ×2 (10:50→17:35)
[2022-03-19] MEDS: MORPHINE SULFATE 2 MG/ML SYR IVP PRN (12:31)
[2022-03-19 16:00] VITALS: BP 120/78
[2022-03-19 20:00] VITALS: BP 125/63
[2022-03-20] VITALS: BP 122/63
--- NOTE | 2022-03-20 | NUR ---
ROUNDS , NO COMPLAIN MADE , CALL LIGHT WITHIN REACH .
--- NOTE | 2022-03-20 01:00 | NUR ---
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
[2022-03-20] MEDS: VANCOMYCIN 1,000 MG in DEXTROSE 5% 250 ML IV SCH ×3 (03:00→17:20)
[2022-03-20 04:00] VITALS: BP 125/63
--- NOTE | 2022-03-20 04:00 | NUR ---
ROUNDS , NO COMPLAIN MADE , CALL L8IGHT WITHIN REACH .
--- NOTE | 2022-03-20 06:00 | NUR ---
ROUNDS , NO COMPLAIN MADE , WILL CONT. TO MONITOR .
--- NOTE | 2022-03-20 07:35 | NUR ---
ENDORSE FOR CONT. OF CARE .
[2022-03-20 08:00] VITALS: BP 140/91
--- NOTE | 2022-03-20 08:00 | NUR ---
RECEIVED IN BED NO IV ASSESSMEN COMPLAEED PLAN OF CARE REVIEWED DENIES PAIN CALL LIGHT IN REACH
--- NOTE | 2022-03-20 12:31 | NUR ---
22G RESTARTED AT RIGHT HAND AT 10AM VANCOMYCIN GIVEN UPON REURNING TO ROOM TO HL PT PULLED IV OUT PT NON COOPERATIVE WILL ATTEMPT TO RESTART IV
--- NOTE | 2022-03-20 14:11 | NUR ---
PATIENT NON COMPLAINAT PULLING OUT IV ON PURPOSE AND REFUSING LABS WILL MAKE MD AWARE
[2022-03-20 16:00] VITALS: BP 108/64
--- NOTE | 2022-03-20 17:14 | NUR ---
DR JOHNSON MADE AWARE PT NON COMPLIANT REFUSED PM BLOOD DRAW REFUSED IV RESTART MADE AWARE PT IS NOT GETTING VANCOMYCIN ORDERED DUE TO REFUSAL OF IV PT NON COMPLIANT RISK AND BENEFITS EXPLAINED TO PATIENT
--- NOTE | 2022-03-20 19:15 | NUR ---
report received from day shift RN, pt refusing care, refusing medications and refusing to have an IV placed for his IV medications. pt vitals stable at this time. will continue to monitor.
--- NOTE | 2022-03-20 21:46 | NUR ---
patient agreed to let RN start IV for his IV antibiotics that are due this morning. patient tolerated procedure well and is in no discomfort from IV start. will continue to monitor.
[2022-03-20] MEDS: MORPHINE SULFATE 2 MG/ML SYR IVP PRN (22:12)
--- NOTE | 2022-03-20 22:20 | NUR ---
PATIENT GIVEN 2MG IV MORPHINE FOR CELLULITIS PAIN. TOLERATED WELL AND STATES HE FEELS BETTER, WILL CONTINUE TO MONITOR. .
[2022-03-21] MEDS: VANCOMYCIN 1,000 MG in DEXTROSE 5% 250 ML IV SCH ×3 (02:03→17:21)
[2022-03-21 04:35] VITALS: BP 110/70
[2022-03-21 06:34] LABS: CARBON DIOXIDE 27.3 mmol/L (21-32); CREATININE 0.9 mg/dL (0.6-1.3)
[2022-03-21 06:38] LABS: BASOPHILS % (AUTO) 0.3 % (0.0-2.0); EOSINOPHILS # (AUTO) 0.2 K/uL (0-0.4); EOSINOPHILS % (AUTO) 2.1 % (0.0-4.0); HEMOGLOBIN 16.2 g/dL (12.0-18.0); MEAN CORPUSCULAR HEMOGLOBIN 30 pg (27-31); MEAN CORPUSCULAR HGB CONC 34 g/dL (33-37); MEAN CORPUSCULAR VOLUME 87.5 fL (80-94); MONOCYTES # (AUTO) 0.5 K/uL (0.8-1.0); MONOCYTES % (AUTO) 7.3 % (1.7-9.3); NEUTROPHILS # (AUTO) 4.3 K/uL (1.8-7.7); NEUTROPHILS % (AUTO) 61.3 % (42.2-75.2); PLATELET COUNT (AUTO) 272 K/uL (140-450); RED BLOOD CELL COUNT(AUTO) 5.37 MIL/uL (4.20-6.10); RED CELL DISTRIBUTION WIDTH 13.9 % (11.6-13.7); WHITE BLOOD COUNT (AUTO) 7.1 K/uL (4.8-10.8)
--- NOTE | 2022-03-21 06:42 | NUR ---
REPORT GIVEN TO DAY SHIFT RN FOR CONTINUITY OF CARE FOR DAY SHIFT.
[2022-03-21 07:24] LABS: ANION GAP 11.1 (8-16); POTASSIUM 4.4 mmol/L (3.5-5.1)
[2022-03-21 08:00] VITALS: BP 119/80
[2022-03-21 16:00] VITALS: BP 119/73
--- NOTE | 2022-03-21 19:17 | NUR ---
ENDORSE PATIENT TO PM SHIFT NURSE WHILE PATIENT REST IN BED. PIV L. FOREARM SALINE LOCK. R.FOOT CELLULITIS SITE ERYTHEMA WITH EDEMA.
--- NOTE | 2022-03-21 19:18 | NUR ---
RECEIVED PT FROM DAY SHIFT NURSE AWAIS FOR CONTINUITY OF CARE. PT AWAKE IN BED. A&O4, ABLE TO MAKE NEEDS KNOWN. RESPIRATIONS EVEN AND UNLABORED ON ROOM AIR. NO DISTRESS NOTED. NO COMPLAINTS OF PAIN AT THIS TIME. RIGHT FOOT SWELLING WITH DISCOLORATION. CALL LIGHT WITHIN REACH. SAFETY PRECAUTIONS IN PLACE.
[2022-03-21 20:00] VITALS: BP 131/64
--- NOTE | 2022-03-21 20:00 | NUR ---
Patient's Plan of Care was discussed and reviewed with MUNA WILLIAM.
--- NOTE | 2022-03-21 23:05 | NUR ---
DID ROUNDS. PT SLEEPING. RESPIRATIONS EVEN AND UNLABORED WITH EQUAL CHEST RISE AND FALL. NO SIGNS OF PAIN. NO DISTRESS NOTED. SAFETY PRECAUTIONS IN PLACE.
[2022-03-22] MEDS: VANCOMYCIN 1,000 MG in DEXTROSE 5% 250 ML IV SCH ×2 (02:22→10:23)
--- NOTE | 2022-03-22 02:41 | NUR ---
HUNG VANCOMYCIN IV PB PER ORDER. PATIENT TOLERATING WELL. NO COMPLAINTS. PT COMFORTABLE. WILL CONTINUE TO MONITOR.
[2022-03-22 04:00] VITALS: BP 120/71
--- NOTE | 2022-03-22 05:34 | NUR ---
PT ASKED FOR SNACKS. PT ATE SANDWICH AND JUICE. WENT BACK TO SLEEP. NO DISTRESS NOTED.
--- NOTE | 2022-03-22 05:35 | NUR ---
PER FIDENCIO FROM LAB, PT REFUSED LAB DRAW. SPOKE TO PT. RISKS AND BENEFITS DISCUSSED. PT STILL REFUSED.
--- NOTE | 2022-03-22 07:15 | NUR ---
ENDORSED PT TO DAY SHIFT NURSE FOR CONTINUITY OF CARE. ALL NEEDS MET THROUGHOUT SHIFT. PT IS STABLE.
--- NOTE | 2022-03-22 08:00 | NUR ---
PT. RECEIVED IN BED SLEEPING W/O ANY ACUTE DISTRESS.VSS.AFEBRILE.CALL LIGHT WITHIN REACH.BED IN LOW SAFE POSITION.RIGHT LLE CELLULITIS NOTED.ABT DUE @ 1000AM.
[2022-03-22] MEDS ORDERED: AMOX-999 PO (10:12)
[2022-03-22] MEDS ORDERED: CLIN300C2 PO (10:12)
[2022-03-22] MEDS ORDERED: HYDR-5191 PO (10:12)
[2022-03-22 11:20] VITALS: BP 120/71
--- NOTE | 2022-03-22 15:00 | NUR ---
PT. DISCHARGED HOME IN STABLE CONDITION.D/C INSTRUCTIONS GIVEN TO PT, AND PT VERBALIZES UNDERSTANDING.ALL BELONGING SENT HOME WITH PT.
== END 2022-03-22 12:15 | disposition home or self-care (01) | DRG 720 ==
LOC: MED 21:03 → MMU 03-19 02:42 → MTU 03-19 03:53 → MMU 03-21 09:00
PROVIDERS: ADMIT Family Medicine; ATTEND Family Medicine
DX: A41.9 Sepsis, unspecified organism (principal); E44.0 Moderate protein-calorie malnutrition; I48.91 Unspecified atrial fibrillation; E83.51 Hypocalcemia; L03.115 Cellulitis of right lower limb; F15.90 Other stimulant use, unspecified, uncomplicated; Z20.822 Contact with and (suspected) exposure to COVID-19; J44.9 Chronic obstructive pulmonary disease, unspecified; Z79.899 Other long term (current) drug therapy; Z79.01 Long term (current) use of anticoagulants; Z79.891 Long term (current) use of opiate analgesic; Z68.28 Body mass index [BMI] 28.0-28.9, adult
CPT/HCPCS: 36415; 71045; 73700; 80048; 80053; 80202; 83735; 85025; 85379; 85651; 86140; 87040; 87081; 93971; 99285; J0690; J2270; J3370; J7060; Q0092

== ENCOUNTER 2022-11-27 21:42 | Emergency (ER) | payer MEDICAID ==
[~2022-11-27] VITALS: Ht 177.8 cm; Wt 90.7 kg
[~2022-11-27 21:42] MED LIST changes: -ACET-8386 PO; +ACET-8905 PO; +AMOX-999 PO; -CEPH-588 PO; +CLIN300C2 PO; -DOXY-487 PO; -PRED20TA5 PO; -SULF-59 PO
[2022-11-27 21:59] VITALS: BP 126/79; PULSE 116; RESP 20; TEMP 98; O2SAT 95
--- NOTE | 2022-11-27 22:08 | NUR ---
pt went back to the lobby
--- NOTE | 2022-11-28 01:03 | NUR ---
PT TO [facility]
[2022-11-28] MEDS ORDERED: HYDROcodone/APAP 10/325 MG 1 TAB TAB PO ONE (01:45)
[2022-11-28] MEDS ORDERED: cephALEXin 500 MG CAP PO ONE (01:45)
[2022-11-28] MEDS ORDERED: FAMOTIDINE 20 MG TAB PO ONE (01:45)
[2022-11-28] MEDS ORDERED: CEPH-588 PO (01:48)
[2022-11-28] MEDS ORDERED: FAMO-90 PO (01:48)
[2022-11-28] MEDS ORDERED: HYDR-5191 PO (01:48)
--- NOTE | 2022-11-28 01:50 | NUR ---
DR. Kay examining the patient at the chair
[2022-11-28 02:02] VITALS: BP 126/79; PULSE 116; RESP 20; TEMP 98; O2SAT 95
--- NOTE | 2022-11-28 02:02 | NUR ---
Patient discharged with v/s stable. Written and verbal after care instructions given and explained. Patient alert, oriented and verbalized understanding of instructions. Ambulatory with steady gait. All questions addressed prior to discharge. ID band removed. Patient advised to follow up with PMD. Rx of keflex amd pepcid given. Patient educated on indication of medication including possible reaction and side effects. Opportunity to ask questions provided and answered.
== END 2022-11-28 02:02 | disposition home or self-care (01) ==
LOC: MED 21:42
DX: L03.115 Cellulitis of right lower limb (principal); Z79.899 Other long term (current) drug therapy
CPT/HCPCS: 73590; 73630; 99284

== ENCOUNTER 2023-02-25 17:39 | Emergency (ER) | payer MEDICAID ==
[~2023-02-25] VITALS: Ht 177.8 cm; Wt 90.7 kg
[~2023-02-25 17:39] MED LIST changes: +CEPH-588 PO; +FAMO-90 PO
[2023-02-25 18:01] VITALS: BP 155/106; PULSE 97; RESP 20; TEMP 96.8; O2SAT 99
[2023-02-25] MEDS ORDERED: KETOROLAC 30 MG/ML VIAL IVP ONE (18:25)
[2023-02-25] MEDS ORDERED: NACL 0.9% 1,000 ML IV ONE (19:05)
[2023-02-25] MEDS ORDERED: TAMS0.4C96 PO (19:20)
[2023-02-25] MEDS ORDERED: IBUP-2213 PO (19:20)
[2023-02-25] MEDS ORDERED: ACET-8905 PO (19:20)
[2023-02-25 19:34] LABS: BASOPHILS # (AUTO) 0.1 K/uL (0.00-0.22); BASOPHILS % (AUTO) 0.4 % (0.0-2.0); EOSINOPHILS # (AUTO) 0.1 K/uL (0-0.4); EOSINOPHILS % (AUTO) 0.5 % (0.0-4.0); HEMATOCRIT 47.3 % (36-52); HEMOGLOBIN 15.9 g/dL (12.0-18.0); LYMPHOCYTES # (AUTO) 1.6 K/uL (2.0-11.5); LYMPHOCYTES % (AUTO) 12.1 % (20.5-51.1); MEAN CORPUSCULAR HEMOGLOBIN 30 pg (27-31); MEAN CORPUSCULAR HGB CONC 34 g/dL (33-37); MEAN CORPUSCULAR VOLUME 87.7 fL (80-94); NEUTROPHILS # (AUTO) 10.3 K/uL (1.8-7.7); PLATELET COUNT (AUTO) 238 K/uL (140-450); RED BLOOD CELL COUNT(AUTO) 5.39 MIL/uL (4.20-6.10); RED CELL DISTRIBUTION WIDTH 14.4 % (11.6-13.7); WHITE BLOOD COUNT (AUTO) 13.1 K/uL (4.8-10.8)
[2023-02-25 19:43] LABS: APPEARANCE,URINE CLEAR (CLEAR); BILIRUBIN,URINE NEGATIVE (NEGATIVE); BLOOD, URINE 3+ (NEGATIVE); COLOR,URINE YELLOW (YELLOW); LEUKOCYTE ESTERASE ,URINE NEGATIVE (NEGATIVE); NITRITE, URINE NEGATIVE (NEGATIVE); PROTEIN,URINE 2+ (NEGATIVE); UGLUCOSE TRACE (NEGATIVE); UROBILINOGEN,URINE 0.2 EU/dL (0.2 - 1)
[2023-02-25 19:49] LABS: ALBUMIN 3.4 g/dL (3.4-5.0); ANION GAP 12.2 (8-16); CALCIUM 8.7 mg/dL (8.5-10.1); CARBON DIOXIDE 25.1 mmol/L (21-32); CREATININE 1.1 mg/dL (0.6-1.3); POTASSIUM 4.3 mmol/L (3.5-5.1); TOTAL BILIRUBIN 0.4 mg/dL (0.0-1.0); TOTAL PROTEIN, SERUM 7.9 g/dL (6.4-8.2)
[2023-02-25 20:07] LABS: BACTERIA,URINE FEW /HPF (None Seen); MUCUS,URINE None Seen /LPF (None Seen); RBC,URINE 11-20 (MOD) /HPF (0-5); SQUAMOUS EPITHELIAL CELL,UR 0-3 (FEW) /LPF (0-3 (FEW)); WBC,URINE 0-5 /HPF (0-5)
[2023-02-25 21:00] VITALS: BP 155/106; PULSE 97; RESP 20; TEMP 96.8; O2SAT 99
== END 2023-02-25 21:00 | disposition home or self-care (01) ==
LOC: MED 17:39
DX: N20.0 Calculus of kidney (principal); R19.7 Diarrhea, unspecified; F17.210 Nicotine dependence, cigarettes, uncomplicated; Z79.899 Other long term (current) drug therapy; Z79.1 Long term (current) use of non-steroidal anti-inflammatories (NSAID); Z79.2 Long term (current) use of antibiotics
CPT/HCPCS: 36415; 74176; 80053; 81001; 83690; 85025; 96361; 96374; 99285; J1885; J7030

== ENCOUNTER 2023-04-29 03:10 | Emergency (ER) | payer MEDICAID ==
[~2023-04-29] VITALS: Ht 177.8 cm; Wt 89.8 kg
[~2023-04-29 03:10] MED LIST changes: +IBUP-2213 PO
[2023-04-29 03:34] VITALS: BP 147/93; PULSE 106; RESP 16; TEMP 97.8; O2SAT 99
[2023-04-29] MEDS: HYDROcodone/APAP 5/325 MG 1 TAB TAB PO ONE (04:11)
[2023-04-29] MEDS: IBUPROFEN 600 MG TAB PO ONE (04:12)
[2023-04-29] MEDS ORDERED: NAPR-54 PO (04:40)
[2023-04-29] MEDS ORDERED: ACET-8905 PO ×2 (05:37→05:38)
== END 2023-04-29 05:34 | disposition home or self-care (01) ==
LOC: MED 03:10
DX: S52.592A Other fractures of lower end of left radius, initial encounter for closed fracture (principal); X58.XXXA Exposure to other specified factors, initial encounter; Y93.89 Activity, other specified; Y92.89 Other specified places as the place of occurrence of the external cause; Y99.8 Other external cause status
CPT/HCPCS: 73090; 99283; Q0092

== ENCOUNTER 2023-05-07 16:33 | Emergency (ER) | payer MEDICAID ==
[~2023-05-07] VITALS: Ht 177.8 cm; Wt 90.7 kg
[2023-05-07 16:43] VITALS: BP 144/85; PULSE 109; RESP 16; TEMP 97.8; O2SAT 95
[2023-05-07] MEDS ORDERED: TRAM-748 PO (17:54)
[2023-05-07] MEDS ORDERED: NAPR-1704 PO (17:54)
[2023-05-07 19:18] VITALS: BP 144/85; PULSE 109; RESP 16; TEMP 97.8; O2SAT 95
== END 2023-05-07 19:19 | disposition home or self-care (01) ==
LOC: MED 16:33
DX: S62.102A Fracture of unspecified carpal bone, left wrist, initial encounter for closed fracture (principal); S39.012A Strain of muscle, fascia and tendon of lower back, initial encounter; S46.811A Strain of other muscles, fascia and tendons at shoulder and upper arm level, right arm, initial encounter; S30.0XXA Contusion of lower back and pelvis, initial encounter; M51.37 Other intervertebral disc degeneration, lumbosacral region; M19.011 Primary osteoarthritis, right shoulder; W18.30XA Fall on same level, unspecified, initial encounter; Y93.89 Activity, other specified; Y92.89 Other specified places as the place of occurrence of the external cause; Y99.8 Other external cause status
CPT/HCPCS: 29105; 72100; 72220; 73030; 99284

== ENCOUNTER 2023-05-30 20:03 | Emergency (ER) | payer MEDICAID ==
[~2023-05-30 20:03] MED LIST changes: +NAPR-1704 PO; +TRAM-748 PO
== END 2023-05-30 20:28 | disposition left against medical advice (07) ==
LOC: MED 20:03
DX: M79.603 Pain in arm, unspecified (principal); Z53.21 Procedure and treatment not carried out due to patient leaving prior to being seen by health care provider

== ENCOUNTER 2023-06-04 03:18 | Emergency (ER) | payer MEDICAID ==
[~2023-06-04] VITALS: Ht 177.8 cm; Wt 90.7 kg
[2023-06-04 03:36] VITALS: BP 142/84; PULSE 104; RESP 18; TEMP 97.2; O2SAT 99
[2023-06-04] MEDS ORDERED: HYDROcodone/APAP 5/325 MG 1 TAB TAB PO ONE (05:30)
== END 2023-06-04 06:53 | disposition home or self-care (01) ==
LOC: MED 03:18
DX: S62.102A Fracture of unspecified carpal bone, left wrist, initial encounter for closed fracture (principal); Z59.00 Homelessness unspecified; W18.30XA Fall on same level, unspecified, initial encounter; Y93.89 Activity, other specified; Y92.89 Other specified places as the place of occurrence of the external cause; Y99.8 Other external cause status
CPT/HCPCS: 73110; 99283

== ENCOUNTER 2023-08-14 10:16 | Emergency (ER) | payer MEDICAID ==
[~2023-08-14] VITALS: Ht 177.8 cm; Wt 90.7 kg
[2023-08-14 10:17] VITALS: BP 122/80; PULSE 100; RESP 18; TEMP 98.5; O2SAT 97
[2023-08-14 10:54] LABS: BASOPHILS % (AUTO) 0.5 % (0.0-2.0); EOSINOPHILS # (AUTO) 0.1 K/uL (0-0.4); EOSINOPHILS % (AUTO) 1.5 % (0.0-4.0); HEMATOCRIT 48.1 % (36-52); HEMOGLOBIN 16.4 g/dL (12.0-18.0); LYMPHOCYTES # (AUTO) 1.8 K/uL (2.0-11.5); LYMPHOCYTES % (AUTO) 26.6 % (20.5-51.1); MEAN CORPUSCULAR HEMOGLOBIN 30 pg (27-31); MEAN CORPUSCULAR HGB CONC 34 g/dL (33-37); MEAN CORPUSCULAR VOLUME 87.9 fL (80-94); MONOCYTES # (AUTO) 0.5 K/uL (0.8-1.0); MONOCYTES % (AUTO) 6.6 % (1.7-9.3); NEUTROPHILS # (AUTO) 4.4 K/uL (1.8-7.7); NEUTROPHILS % (AUTO) 64.8 % (42.2-75.2); PLATELET COUNT (AUTO) 248 K/uL (140-450); RED BLOOD CELL COUNT(AUTO) 5.48 MIL/uL (4.20-6.10); RED CELL DISTRIBUTION WIDTH 14.4 % (11.6-13.7); WHITE BLOOD COUNT (AUTO) 6.8 K/uL (4.8-10.8)
[2023-08-14 11:12] LABS: CALCIUM 9.5 mg/dL (8.5-10.1); CARBON DIOXIDE 30.9 mmol/L (21-32); CREATININE 0.9 mg/dL (0.6-1.3); POTASSIUM 3.9 mmol/L (3.5-5.1)
[2023-08-14 14:26] VITALS: BP 119/78; PULSE 95; RESP 16; TEMP 97.7; O2SAT 92
== END 2023-08-14 14:27 | disposition home or self-care (01) ==
LOC: MED 10:16
DX: R07.9 Chest pain, unspecified (principal); F15.10 Other stimulant abuse, uncomplicated; I10 Essential (primary) hypertension; J44.9 Chronic obstructive pulmonary disease, unspecified; Z79.899 Other long term (current) drug therapy
CPT/HCPCS: 36415; 71045; 80048; 84484; 85025; 93005; 99285; Q0092